=== PATIENT | male | born 1975 | race Caucasian/White ===

== ENCOUNTER 2020-12-29 13:02 | Emergency (ER) | payer OTHER, SELFPAY ==
[~2020-12-29] VITALS: Ht 185.4 cm; Wt 117.9 kg
[2020-12-29 13:05] VITALS: BP 131/90; Ht 185.4 cm; Wt 117.9 kg
== END 2020-12-29 15:41 | disposition home or self-care (01) ==
LOC: ED 13:02
DX: J02.9 Acute pharyngitis, unspecified (principal); R21 Rash and other nonspecific skin eruption; E78.00 Pure hypercholesterolemia, unspecified; N40.0 Benign prostatic hyperplasia without lower urinary tract symptoms; E66.9 Obesity, unspecified; Z68.34 Body mass index [BMI] 34.0-34.9, adult; Z20.828 Contact with and (suspected) exposure to other viral communicable diseases
CPT/HCPCS: J2930; Q0177; U0003